=== PATIENT | female | born 1955 | race Asian ===

== ENCOUNTER 2017-06-04 05:43 | Day surgery (SDC) | payer OTHER ==
[~2017-06-04] VITALS: Ht 154.9 cm; Wt 70.0 kg
[~2017-06-04 05:43] MED LIST: ATOR20TA86 PO; CELE200 PO; METF500T4 PO; TOFA5TAB PO
[2017-06-04] MEDS ORDERED: HYALURONATE SOD/CHONDROITIN SOD 0.5 ML VIAL IO ONE (05:44)
[2017-06-04] MEDS ORDERED: BRIMONIDINE TARTRATE 0.15% 5 ML OPHTHALMIC SOLUTION OS ONE (05:44)
[2017-06-04] MEDS ORDERED: POVIDONE-IODINE 10% 15 ML SOLUTION UD TP ONE (05:44)
[2017-06-04] MEDS ORDERED: LIDOCAINE HCL/PF 1% 2 ML VIAL INJ ONE (05:44)
[2017-06-04] MEDS ORDERED: HYALURONATE SODIUM 12 MG/ML 0.8 ML SYRINGE IO ONE (05:44)
[2017-06-04] MEDS ORDERED: EPINEPHrine 1:1,000 [1 MG/ML] AMP IM ONE (05:44)
[2017-06-04] MEDS ORDERED: TETRACAINE HCL VISCOUS 0.5% 5 ML OPHTHALMIC SOLUTION OS ONE (05:44)
[2017-06-04] MEDS ORDERED: PHENYLEPHRINE HCL 2.5% 2 ML OPHTHALMIC SOLUTION ONE (05:51)
[2017-06-04] MEDS ORDERED: RINGERS SOLUTION,LACTATED 500 ML IV ONE ×2 (05:51→06:00)
[2017-06-04] MEDS ORDERED: MOXIFLOXACIN HCL 0.5% 3 ML OPHTHALMIC SOLUTION ONE (05:51)
[2017-06-04] MEDS ORDERED: TETRACAINE HCL/PF 0.5% 4 ML OPHTHALMIC SOLUTION ONE (05:51)
[2017-06-04] MEDS ORDERED: CYCLOPENTOLATE HCL 2% 2 ML OPHTHALMIC SOLUTION ONE (05:51)
[2017-06-04] MEDS ORDERED: KETOROLAC TROMETHAMINE 0.5% 5 ML OPHTHALMIC SOLUTION ONE (06:42)
[2017-06-04] MEDS: PHENYLEPHRINE HCL 2.5% 2 ML OPHTHALMIC SOLUTION OS SCH ×3 (06:44→06:55)
[2017-06-04] MEDS: MOXIFLOXACIN HCL 0.5% 3 ML OPHTHALMIC SOLUTION OS SCH ×3 (06:44→07:05)
[2017-06-04] MEDS: CYCLOPENTOLATE HCL 2% 2 ML OPHTHALMIC SOLUTION OS SCH ×3 (06:44→06:55)
[2017-06-04] MEDS ORDERED: KETOROLAC TROMETHAMINE 0.5% 5 ML OPHTHALMIC SOLUTION OS ONE (06:45)
[2017-06-04 06:48] LABS: GLUCOSE,POINT OF CARE 124 MG/DL (70-110)
[2017-06-04] MEDS ORDERED: ACETAMINOPHEN/CODEINE 300-30 MG TABLET PO PRN (07:30)
[2017-06-04] MEDS ORDERED: AcetaZOLAMIDE 250 MG TABLET PO ONE (07:30)
[2017-06-04] MEDS ORDERED: DICLOFENAC SODIUM 0.1% 2.5 ML OPHTHALMIC SOLUTION OS SCH (07:30)
[2017-06-04] MEDS ORDERED: TETRACAINE HCL/PF 0.5% 4 ML OPHTHALMIC SOLUTION OS ONE (07:30)
[2017-06-04] MEDS ORDERED: AcetaZOLAMIDE 250 MG TABLET ONE (08:09)
== END 2017-06-04 08:35 | disposition home or self-care (01) ==
LOC: SURGERY 05:43
PROVIDERS: ATTEND Ophthalmology
DX: E11.36 Type 2 diabetes mellitus with diabetic cataract (principal); H25.12 Age-related nuclear cataract, left eye; D64.9 Anemia, unspecified; Z79.899 Other long term (current) drug therapy; Z98.890 Other specified postprocedural states
CPT/HCPCS: 66984; 82962; 93005; C1780; J0171; J3490 ×2; J7120

== ENCOUNTER 2017-12-04 06:08 | Day surgery (SDC) | payer OTHER ==
[~2017-12-04] VITALS: Ht 157.5 cm; Wt 68.2 kg
[~2017-12-04 06:08] MED LIST changes: +SODIUM CHLORIDE 0.9% 1,000 ML IV ONE
[2017-12-04] MEDS ORDERED: LIDOCAINE HCL 4% 50 ML SOLUTION TP ONE (06:09)
[2017-12-04] MEDS ORDERED: LIDOCAINE HCL 2% 30 ML JELLY TP ONE (06:09)
[2017-12-04] MEDS ORDERED: BENZOCAINE 20% 50 MCG/SPRAY 57 GM TP ONE (06:09)
[2017-12-04] MEDS ORDERED: EPINEPHrine 1:1,000 [1 MG/ML] AMP IM ONE (06:09)
[2017-12-04] MEDS ORDERED: SODIUM CHLORIDE 0.9% 1,000 ML IV ONE (06:39)
[2017-12-04] MEDS ORDERED: MIDAZOLAM HCL 2 MG/2 ML VIAL ONE (07:43)
[2017-12-04] MEDS ORDERED: FentaNYL CITRATE-PF 100 MCG/2 ML VIAL ONE (07:43)
[2017-12-04 07:58] LABS: GLUCOMETER DEV NAME(LOC) SDS 5; GLUCOSE,POINT OF CARE 145 MG/DL (70-110)
[2017-12-04] MEDS ORDERED: MethylPREDNISolone SOD SUCC 125 MG/2 ML VIAL IVP ONE (08:45)
[2017-12-04] MEDS ORDERED: OXYGEN THERAPY IH SCH (20:00)
== END 2017-12-04 10:00 | disposition home or self-care (01) ==
LOC: SURGERY 06:08
PROVIDERS: ATTEND Internal Medicine Critical Care Medicine
DX: J38.4 Edema of larynx (principal); B37.0 Candidal stomatitis; J84.111 Idiopathic interstitial pneumonia, not otherwise specified; E11.9 Type 2 diabetes mellitus without complications; E78.00 Pure hypercholesterolemia, unspecified; M19.011 Primary osteoarthritis, right shoulder; Z79.84 Long term (current) use of oral hypoglycemic drugs; Z96.653 Presence of artificial knee joint, bilateral; Z98.42 Cataract extraction status, left eye; Z98.890 Other specified postprocedural states; Z79.899 Other long term (current) drug therapy
CPT/HCPCS: 31623; 31624; 71045; 82962; 87015; 87070; 87077; 87186; 87205; 87220; 88108; 88312; J0171; J2250; J2930; J3010; J7030

== ENCOUNTER 2019-04-24 06:05 | Day surgery (SDC) | payer OTHER ==
[~2019-04-24] VITALS: Ht 154.9 cm; Wt 71.8 kg
[~2019-04-24 06:05] MED LIST changes: +METF-960 PO; -METF500T4 PO; -SODIUM CHLORIDE 0.9% 1,000 ML IV ONE
[2019-04-24] MEDS ORDERED: LIDOCAINE 4% 50 ML SOLUTION TP ONE (06:06)
[2019-04-24] MEDS ORDERED: BENZOCAINE 20% 50 MCG/SPRAY 57 GM TP ONE (06:06)
[2019-04-24] MEDS ORDERED: LIDOCAINE 2% 5 ML JELLY TP ONE (06:06)
[2019-04-24] MEDS ORDERED: SODIUM CHLORIDE 0.9% 1,000 ML IV ONE ×2 (07:05→07:15)
[2019-04-24 07:46] LABS: GLUCOMETER DEV NAME(LOC) SDS.; GLUCOSE,POINT OF CARE 132 MG/DL (70-110)
[2019-04-24] MEDS ORDERED: METF-445 PO (07:50)
[2019-04-24] MEDS ORDERED: PIOG45TA4 PO (07:50)
[2019-04-24] MEDS ORDERED: FAMO20 PO (07:50)
[2019-04-24] MEDS ORDERED: MONT10TA21 PO (07:50)
[2019-04-24] MEDS ORDERED: TOFA11TA PO (07:50)
[2019-04-24] MEDS ORDERED: SITA100 PO (07:50)
[2019-04-24] MEDS ORDERED: FentaNYL CITRATE-PF 100 MCG/2 ML VIAL ONE (08:01)
[2019-04-24] MEDS ORDERED: MIDAZOLAM HCL 2 MG/2 ML VIAL ONE (08:01)
[2019-04-24] MEDS ORDERED: MethylPREDNISolone SOD SUCC 125 MG/2 ML VIAL IVP ONE (08:45)
[2019-04-24] MEDS ORDERED: MethylPREDNISolone SOD SUCC 125 MG/2 ML VIAL ONE (08:57)
[2019-04-24] MEDS ORDERED: OXYGEN THERAPY IH SCH (20:00)
== END 2019-04-24 10:05 | disposition home or self-care (01) ==
LOC: SURGERY 06:05
PROVIDERS: ATTEND Internal Medicine Critical Care Medicine
DX: J38.4 Edema of larynx (principal); B37.0 Candidal stomatitis; J45.909 Unspecified asthma, uncomplicated; J98.8 Other specified respiratory disorders; E11.9 Type 2 diabetes mellitus without complications; M19.90 Unspecified osteoarthritis, unspecified site; Z79.899 Other long term (current) drug therapy; Z98.42 Cataract extraction status, left eye; Z96.653 Presence of artificial knee joint, bilateral; Z98.890 Other specified postprocedural states
CPT/HCPCS: 31623; 31624; 71045; 82962; 87015; 87070; 87077; 87101; 87186; 87205; 87206; 87220; 88108; 88312; J2250; J2930; J3010; J7030

== ENCOUNTER 2021-02-13 06:16 | Day surgery (SDC) | payer MEDICARE, OTHER ==
[2021-02-10 11:48] LABS: COVID AG,FIA SOURCE NASOPHARYNGEAL
[~2021-02-13] VITALS: Ht 157.5 cm; Wt 68.2 kg
[~2021-02-13 06:16] MED LIST changes: -ATOR20TA86 PO; -CELE200 PO; +CHOL100044 PO; +FAMO20 PO; +FLUT16H NASAL; +METF-445 PO; -METF-960 PO; +MONT-35 PO; +NYST100033 PO; +OMEG10005 PO; +TOFA11TA PO; -TOFA5TAB PO; +ZINC50TA71 PO
[2021-02-13] MEDS ORDERED: LIDOCAINE 2% 30 ML JELLY TP ONE (06:17)
[2021-02-13] MEDS ORDERED: BENZOCAINE 20% 50 MCG/SPRAY 57 GM TP ONE (06:17)
[2021-02-13] MEDS ORDERED: ALBUTEROL SULFATE 2.5 MG/0.5 ML NEB SOLUTION NEB ONE (06:17)
[2021-02-13] MEDS ORDERED: LIDOCAINE 4% 50 ML SOLUTION TP ONE (06:17)
[2021-02-13] MEDS ORDERED: SODIUM CHLORIDE 0.9% 1,000 ML ONE (06:39)
[2021-02-13] MEDS ORDERED: MIDAZOLAM HCL 2 MG/2 ML VIAL ONE (07:36)
[2021-02-13] MEDS ORDERED: FentaNYL CITRATE PF 100 MCG/2 ML VIAL ONE (07:37)
[2021-02-13] MEDS ORDERED: SODIUM CHLORIDE 0.9% 1,000 ML IV ONE (08:00)
[2021-02-13 08:47] LABS: GLUCOMETER DEV NAME(LOC) SDS.; GLUCOSE,POINT OF CARE 179 MG/DL (70-110)
[2021-02-13] MEDS ORDERED: MethylPREDNISolone SOD SUCC 125 MG/2 ML VIAL IVP ONE (09:00)
[2021-02-13] MEDS ORDERED: MethylPREDNISolone SOD SUCC 125 MG/2 ML VIAL ONE (09:11)
[2021-02-13] MEDS ORDERED: OXYGEN THERAPY IH SCH (20:00)
== END 2021-02-13 11:00 | disposition home or self-care (01) ==
LOC: SURGERY 06:16
PROVIDERS: ATTEND Internal Medicine Critical Care Medicine
DX: J38.4 Edema of larynx (principal); B37.0 Candidal stomatitis; I10 Essential (primary) hypertension; Z87.891 Personal history of nicotine dependence; Z98.890 Other specified postprocedural states; Z79.899 Other long term (current) drug therapy
CPT/HCPCS: 31623; 31624; 71045; 82962; 87015; 87070; 87101; 87205; 87206; 87220; 87426; 88108; 88184; 88185; 88312; C9803; J2250; J2930; J3010; J7030; J7613; Z7610